=== PATIENT | female | born 1960 | race Caucasian/White ===

== ENCOUNTER 2018-05-21 11:36 | Outpatient (CLI) | payer OTHER ==
--- NOTE | 2018-05-21 15:43 | XRAY Report ---
Reason: PALPITATIONS Procedure Date: 05/21/2018 Accession Number: [id number] / [id number] Procedure: WCP - Chest 2 View X-Ray CPT Code: 54963 FULL RESULT: EXAM: CHEST RADIOGRAPHY EXAM DATE: 05/21/2018 11:53 AM. CLINICAL HISTORY: PALPITATIONS. COMPARISON: None. TECHNIQUE: 2 views. FINDINGS: Lungs/Pleura: No focal opacities evident. No pleural effusion. No pneumothorax. Normal volumes. Mediastinum: Heart and mediastinal contours are unremarkable. Other: None. IMPRESSION: Normal 2-view chest radiography. RADIA
== END 2018-05-21 11:37 | disposition home or self-care (01) ==
LOC: DI.WCP 11:36
PROVIDERS: ATTEND Family Medicine
DX: R00.2 Palpitations (principal)
CPT/HCPCS: 71046

== ENCOUNTER 2022-12-01 04:05 | Outpatient (CLI) | payer OTHER | END 2022-12-01 04:06 | disposition critical access hospital (66) | LOC: EMS 04:05 | DX: S69.91XA Unspecified injury of right wrist, hand and finger(s), initial encounter (principal); S00.81XA Abrasion of other part of head, initial encounter; W01.0XXA Fall on same level from slipping, tripping and stumbling without subsequent striking against object, initial encounter; Y92.481 Parking lot as the place of occurrence of the external cause | CPT/HCPCS: A0425; A0429 ==

== ENCOUNTER 2022-12-01 04:21 | Emergency (ER) | payer OTHER ==
[2022-12-01] MEDS ORDERED: TETANUS/DIPHTHERIA/PERTUSSIS 0.5 ML SYRINGE IM ONE (04:41)
[2022-12-01] MEDS ORDERED: MORPHINE 10 MG/ML VIAL IM STA (04:42)
[2022-12-01] MEDS ORDERED: HYDROmorphone 1 MG/ML CARPUJECT IM STA (04:43)
--- NOTE | 2022-12-01 04:43 | ED Physician Documentation ---
History of Present Illness - Stated complaint Stated Complaint: GLF - Chief complaint Chief Complaint: Trauma Ext - History obtained from History obtained from: Patient - Additonal information Additional information: 62yF, previously healthy with no known pmh presents s/p mechanical fall around 8pm last night with FOOSH to right hand and R forehead abrasion. also with R lower back pain s/p fall. denies other injury PD PAST MEDICAL HISTORY - Past Medical History Cardiovascular: None Respiratory: None Endocrine/Autoimmune: None GI: None COLLEGE PROFESSOR: None : None HEENT: None Psych: None Musculoskeletal: None Derm: None - Past Surgical History Past Surgical History: Yes /COLLEGE PROFESSOR: Hysterectomy - Present Medications Home Medications: Ambulatory Orders Medication Instructions Recorded Confirmed Lidocaine Patch 5% [Lidoderm Patch] 1 each TOP DAILY PRN #10 patch 02/08/16 Wheelchair 1 each MC DAILY #1 each 02/08/16 Oxycodone HCl/Acetaminophen 1 each PO Q4H PRN #10 tablet 12/01/22 [Percocet 5-325 mg Tablet] - Allergies Allergies/Adverse Reactions: Allergies Allergy/AdvReac Type Severity Reaction Status Date / Time codeine AdvReac Itching Verified 02/08/16 21:13 morphine AdvReac Hives Verified 02/08/16 21:13 - Social History Does the pt smoke?: Yes Smoking Status: Current every day smoker Does the pt drink ETOH?: No Does the pt have substance abuse?: No - Immunizations Immunizations are current?: No - POLST Patient has POLST: No PD ED PE NORMAL - Vitals Vital signs reviewed: Yes - General General: Alert and oriented X 3, No acute distress, Well developed/nourished - HEENT HEENT: Atraumatic, PERRL, EOMI, Moist mucous membranes, Pharynx benign, Other (R forehead abrasion/avulsed tissue. ) - Neck Neck: No bony TTP, C-Spine cleared by NEXUS criteria - Cardiac Cardiac: RRR - Respiratory Respiratory: No respiratory distress, Clear bilaterally - Abdomen Abdomen: Non tender, Non distended - Derm Derm: Normal color, Warm and dry - Extremities Extremities: Other (R distal forearm swelling/ttp. 2+ radial pulse. normal sensation and cap refill. tender with rom of wrist. nontender to elbow or arm/shoulder.) - Neuro Neuro: Alert and oriented X 3, collection coordinator 2-12 intact Eye Opening: Spontaneous Motor: Obeys Commands Verbal: Oriented GCS Score: 15 Results - Vitals Vitals: Vital Signs - 24 hr 12/01/22 12/01/22 12/01/22 04:28 05:31 06:04 Temperature 36.7 C Heart Rate 93 71 78 Respiratory 18 16 18 Rate Blood Pressure 137/86 H 144/75 H 144/102 H O2 Saturation 94 95 97 Oxygen O2 Source Room air Procedures - General procedure General procedure: Ring cutter was used to remove metal bracelet from swollen right wrist. Patient tolerated well. EBL 0. PD Medical Decision Making - ED course ED course: 62yF presents s/p mechanical fall from standing while walking a dog last night at 8pm. Suspect R distal forearm fracture. CT head ordered given head trauma. tdap updated. Patient's pain was managed with injection of 1mg IM dilaudid with improvement. (Note patient said she has allergy to codeine from long ago and stated she get itchy. She tolerated percoset in the past without issue. No known allergy to dilaudid.) XR RUE shows mildly displaced R distal radius fracture, possible comminution and intra-articular communication as well as ulnar styloid avulsion. d/w Dr. Whitten, orthopedist residential collections who recommends splint and f/u in clinic. sugar tongue splint placed and arm in sling. referral to ortho provided. CT head unremarkable per my interpretation and that of outside radiologist.Retur n precautions given. Departure - Departure Disposition: 01 Home, Self Care Clinical Impression: Fall from standing, Head injury, Distal radius fracture, right, Fracture of ulnar styloid Condition: Stable Instructions: ED Fx Wrist General Follow-Up: Geoff Banuelos MD [Provider Admit Priv/Credential] - Prescriptions: Oxycodone HCl/Acetaminophen [Percocet 5-325 mg Tablet] 1 each PO Q4H PRN #10 tablet PRN Reason: Pain >8 Comments: You were seen in the emergency department for Evaluation after a fall. You broke your distal radius and tip of the ulna (bones of the forearm at the end of the forearm near the wrist). Prescription for pain medicine was sent electronically to your pharmacy. Please follow-up with orthopedics this week and return to the emergency department if you have any new or worsening symptoms or other concerns. Forms: PCP List
[2022-12-01 05:37] VITALS: O2SAT 95
[2022-12-01 06:54] VITALS: BP 136/78
--- NOTE | 2022-12-01 08:52 | XRAY Report ---
PROCEDURE: Wrist 2 View RT INDICATIONS: fall on outstreched hand, obv deformity TECHNIQUE: 3 views of the wrist were acquired. COMPARISON: None. FINDINGS: Bones: Mildly displaced, angulated fracture of the distal radial metadiaphysis. Age-indeterminate fr acture of the ulnar styloid. Soft tissues: No suspicious soft tissue calcifications or masses. IMPRESSION: Mildly displaced, angulated fracture of the distal radial metadiaphysis. Age-indeterminate fracture of the ulnar styloid. Reviewed by: Richard Mobley on 12/01/2022 8:50 AM PDT Approved by: Richard Mobley on 12/01/2022 8:50 AM PDT Station ID: [id number]
--- NOTE | 2022-12-01 08:53 | CT Report ---
PROCEDURE: HEAD WO INDICATIONS: +HT no loc no AC TECHNIQUE: Noncontrast 4.5 mm thick angled axial sections acquired from the foramen magnum to the vertex. For r adiation dose reduction, the following was used: automated exposure control, adjustment of mA and/or kV according to patient size. COMPARISON: None. FINDINGS: Image quality: Excellent. CSF spaces: Basal cisterns are patent. No extra-axial fluid collections. Ventricles are normal in size and shape. Brain: No midline shift. No intracranial masses or hemorrhage. Mccormick-white matter interface is norm al. Skull and face: Calvarium and visualized facial bones are intact, without suspicious lesions. Sinuses: Visualized sinuses and mastoids are clear. IMPRESSION: No acute intracranial pathology. Findings are concordant with preliminary interpretation provided by [facility]. Reviewed by: Richard Mobley on 12/01/2022 8:52 AM PDT Approved by: Richard Mobley on 12/01/2022 8:52 AM PDT Station ID: [id number]
== END 2022-12-01 06:44 | disposition home or self-care (01) ==
LOC: EDUNIT# → ED 04:21
DX: S09.90XA Unspecified injury of head, initial encounter (principal); S52.613A Displaced fracture of unspecified ulna styloid process, initial encounter for closed fracture; S52.591A Other fractures of lower end of right radius, initial encounter for closed fracture; W19.XXXA Unspecified fall, initial encounter; F17.200 Nicotine dependence, unspecified, uncomplicated; Z23 Encounter for immunization
CPT/HCPCS: 70450; 73100; 90471; 90715; 99284; J1170

== ENCOUNTER 2022-12-08 08:00 | Outpatient (CLI) | payer OTHER ==
--- NOTE | 2022-12-08 13:50 | XRAY Report ---
PROCEDURE: Wrist 3 View RT INDICATIONS: RIGHT WRIST PAIN TECHNIQUE: 3 views of the wrist were acquired. COMPARISON: 12/01/2022 FINDINGS: Bones: Redemonstrated acute comminuted distal radius fracture with mild dorsal angulation of distal fragments. Possible increase in distraction of fracture fragments versus projectional artifact. Acute mildly displaced ulnar styloid fracture redemonstrated. Soft tissues: No suspicious soft tissue calcifications . IMPRESSION: Redemonstrated acute comminuted distal radius fracture. Possible increase in distraction of fracture fragments versus projectional artifact. Reviewed by: Paul John MD on 12/08/2022 1:49 PM PDT Approved by: Paul John MD on 12/08/2022 1:49 PM PDT Station ID: [id number]
== END 2022-12-08 23:59 | disposition home or self-care (01) ==
LOC: DI.WOS 08:00
PROVIDERS: ATTEND Orthopaedic Surgery
DX: S52.501D Unspecified fracture of the lower end of right radius, subsequent encounter for closed fracture with routine healing (principal)

== ENCOUNTER 2022-12-12 11:38 | Day surgery (SDC) | payer OTHER ==
[~2022-12-12 11:38] MED LIST: ACETAMINOPHEN 500 MG TABLET PO ONE; CELECOXIB 100 MG CAPSULE PO ONE; LACTATED RINGERS 1,000 ML IV ONE; ceFAZolin 2 GM VIAL ONE
[2022-12-12] MEDS ORDERED: PROPOFOL 500 MG/50 ML 500 MG/50 ML VIAL ONE (11:51)
[2022-12-12] MEDS ORDERED: LACTATED RINGERS 1,000 ML IV ONE (12:08)
--- NOTE | 2022-12-12 12:31 | ANESTHESIA ---
Pre-Anesthesia VS, & Labs - Diagnosis R distal radius fx - Procedure closed reduction, pinning, R distal radius Height: 5 ft 6 in Weight (kg): 70 kg Body Mass Index: 24.9 BMI Classification: Normal - NPO >8 hours - Is Patient ?: No - Lab Results Lab results reviewed: Yes Home Medications and Allergies Home Medications: Ambulatory Orders Acetaminophen [Tylenol] 650 mg PO Q6H PRN 12/09/22 Ibuprofen [Motrin] 600 mg PO Q6H PRN 12/09/22 Acetaminophen [Tylenol] 650 mg PO Q6H PRN 12/09/22 Ibuprofen [Motrin] 600 mg PO Q6H PRN 12/09/22 Allergies/Adverse Reactions: Allergies Allergy/AdvReac Type Severity Reaction Status Date / Time codeine AdvReac Hives Verified 12/09/22 10:02 Anes History & Medical History - Anesthetic History Anesthesia Complications: reports: No previous complications Family history of Anesthesia Complications: Denies Family history of Malignant Hyperthermia: Denies - Medical History Cardiovascular: reports: None Pulmonary: reports: None Gastrointestinal: reports: None Urinary: reports: None Musculoskeletal: reports: Osteoarthritis Endocrine/Autoimmune: reports: None Blood Disorders: reports: None Skin: reports: None Smoking Status: Current every day smoker - Surgical History Gynecologic: reports: Hysterectomy Exam General: Alert, Oriented x3, Cooperative Dental: WNL Mouth Openin Fingerbreadth Neck Mobility: Normal Mallampati classification: II Thyromental Distance: 4-6 cm Respiratory: Lungs clear, Normal breath sounds, No respiratory distress Cardiovascular: Regular rate Neurological: Normal speech Mental/Cognitive Status: Alert/Oriented X3, Normal for patient Cognitive Status: Within normal limits Plan Anesthesia Type: General, Supraclavicular Block Consent for Procedure(s) Verified and Reviewed: Yes Code Status: Attempt Resuscitation ASA classification: 2-Mild systemic disease Is this case an emergency?: No
[2022-12-12] MEDS ORDERED: fentaNYL 100 MCG/2 ML VIAL ONE ×2 (12:52→14:13)
[2022-12-12] MEDS ORDERED: MIDAZOLAM 2 MG/2 ML VIAL ONE (12:52)
[2022-12-12] MEDS ORDERED: ROPIVACAINE 0.2% PF 10 ML VIAL ONE (12:53)
[2022-12-12] MEDS ORDERED: ePHEDrine 50 MG/ML VIAL IVP PRN (13:21)
[2022-12-12] MEDS ORDERED: MORPHINE 2 MG/ML CARPUJECT IVP PRN (13:21)
[2022-12-12] MEDS ORDERED: NALOXONE 0.4 MG/ML VIAL IVP PRN (13:21)
[2022-12-12] MEDS ORDERED: ATROPINE ABBOJECT 1 MG/10 ML SYRINGE IVP PRN (13:21)
[2022-12-12] MEDS ORDERED: HYDROmorphone 0.5 MG/0.5 ML SYRINGE IVP PRN (13:21)
[2022-12-12] MEDS ORDERED: METOCLOPRAMIDE 10 MG/2 ML VIAL IVP PRN (13:21)
[2022-12-12] MEDS ORDERED: ONDANSETRON 4 MG/2 ML VIAL IVP PRN ×2 (13:21→13:53)
[2022-12-12] MEDS ORDERED: oxyCODONE 5 MG TABLET PO PRN (13:53)
[2022-12-12] MEDS ORDERED: CELECOXIB 100 MG CAPSULE PO PRN (13:53)
[2022-12-12] MEDS ORDERED: ACETAMINOPHEN 500 MG TABLET PO PRN (13:53)
--- NOTE | 2022-12-12 13:54 | OPERATIVE REPORT ---
Operative Report - General Procedure Date: 12/12/22 Planned Procedure: Closed reduction right distal radius with percutaneous pinning Pre-Op Diagnosis: Displaced intra-articular fracture right distal radius Procedure Performed: Closed reduction right distal radius with percutaneous pinning right wrist Post Op Diagnosis: Same as preoperative diagnosis - Procedure Note Primary Surgeon: Geoff Banuelos MD Secondary Surgeon: Beau Hanks MD, Kirstin CASTANO Anesthesia Provider: Rod Schmidt CRNA Anesthesia Technique: General LMA, Regional block Estimated Blood Loss (mL): 2 Indications: This is a 62-year-old woman with a ground-level fall onto outstretched right hand. She had isolated pain to right wrist with tenderness, swelling and limited motion right wrist. Her skin was intact. Her x-ray showed a displaced comminuted intra-articular fracture right distal radius. Informed consent obtained for closed reduction percutaneous pinning right distal radius Findings: Displaced, comminuted intra-articular fracture right distal radius Complications: None - Other Other Information/Narrative: The patient was brought to the operating room and was placed in a supine position with the right arm on a arm extension table. He received a regional block with supplemental sedation. The right upper extremity was prepped and draped in a sterile manner in the usual fashion. The C-arm image intensifier was utilized and covered with a sterile drape. A timeout procedure was performed by the entire operating room team and all were in agreement. Finger traps were applied to all 5 fingers and a traction bow as well. Longitudinal traction was applied, direct manipulation of the fracture site over a sterile bump. The C-arm image intensifier showed good alignment and a percutaneous pinning was performed with 0.062 K wires. The bare area of the radial styloid was engaged and pin was inserted from the styloid across the fracture to achieve bicortical fixation. An additional K wire from the radial styloid was also inserted to provide 2 bicortical K wires from the radial styloid. 1 additional K wire was inserted from the ulnar corner of the distal radius distally and these were then driven from distal to proximal and ulnar to radial. Biplanar and oblique imaging was obtained and there was good alignment of the fixation and fracture. The K wires were cut external to skin and covered with sterile balls. A well-padded short arm fiberglass splint was applied with gauze padding around the K wires. The patient tolerated the procedure well. No tourniquet was utilized.
[2022-12-12] MEDS ORDERED: LACTATED RINGERS 350 ML IV ONE ×2 (13:57)
[2022-12-12] MEDS ORDERED: LACTATED RINGERS 1,000 ML IV SCH (14:00)
--- NOTE | 2022-12-12 14:02 | ANESTHESIA POST OP EVALUATION ---
Anesthesia Post Eval - Post Anesthesia Eval Vitals: Last Vital Signs Temp 36.8 C 12/12/22 12:12 Pulse 79 12/12/22 12:12 Resp 16 12/12/22 12:12 BP 133/82 H 12/12/22 12:12 Pulse Ox 97 12/12/22 12:12 O2 Flow Rate CV Function Including HR & BP: Stable Pain Control: Satisfactory Nausea & Vomiting: Negative Mental Status: Baseline Respiratory Status: Airway Patent Hydration Status: Satisfactory Anesthesia Complications: None
[2022-12-12] MEDS: fentaNYL 100 MCG/2 ML VIAL IVP PRN ×2 (14:07→14:22)
[2022-12-12] MEDS ORDERED: oxyCODONE 5 MG TABLET ONE (15:00)
[2022-12-12 15:14] VITALS: O2SAT 96
[2022-12-12 15:42] VITALS: BP 136/73
--- NOTE | 2022-12-13 12:17 | XRAY Report ---
PROCEDURE: OR C-Arm Procedure INDICATIONS: RIGHT RADIUS PINNING FLUORO TIME: 0.2 MIN TECHNIQUE: Intraoperative fluoroscopic images COMPARISON: Chest x-ray 12/08/2022 FINDINGS: Intraoperative fluoroscopic images of distal radial fixation. IMPRESSION: Intraoperative fluoroscopic images of distal radial fixation. Reviewed by: Reg Cazares MD on 12/13/2022 12:11 PM PDT Approved by: Reg Cazares MD on 12/13/2022 12:11 PM PDT Station ID: [id number]
== END 2022-12-12 11:39 | disposition home or self-care (01) ==
LOC: SDS 11:38
PROVIDERS: ATTEND Orthopaedic Surgery
DX: S52.531A Colles' fracture of right radius, initial encounter for closed fracture (principal); W01.0XXA Fall on same level from slipping, tripping and stumbling without subsequent striking against object, initial encounter; Y93.K1 Activity, walking an animal; Y92.481 Parking lot as the place of occurrence of the external cause; F17.200 Nicotine dependence, unspecified, uncomplicated
CPT/HCPCS: 25606; A9270; J7120

== ENCOUNTER 2023-01-09 08:00 | Outpatient (CLI) | payer OTHER ==
--- NOTE | 2023-01-09 16:45 | XRAY Report ---
PROCEDURE: Wrist 3 View RT INDICATIONS: RIGHT WRIST FRACTURE TECHNIQUE: 3 views of the wrist were acquired. COMPARISON: None. FINDINGS: Bones: Excellent fixation of the distal radial fracture has been performed with improved alignment. No change in ulnar styloid fracture. No suspicious bony lesions. Soft tissues: No suspicious soft tissue calcifications or masses. IMPRESSION: Postsurgical sequelae. Reviewed by: Myesha Barajas MD on 01/09/2023 4:44 PM PDT Approved by: Myesha Barajas MD on 01/09/2023 4:44 PM PDT Station ID: [id number]
== END 2023-01-09 23:59 | disposition home or self-care (01) ==
LOC: DI.WOS 08:00
PROVIDERS: ATTEND Orthopaedic Surgery
DX: S52.531A Colles' fracture of right radius, initial encounter for closed fracture (principal)

== ENCOUNTER 2023-01-24 08:00 | Outpatient (CLI) | payer OTHER ==
--- NOTE | 2023-01-24 16:32 | XRAY Report ---
PROCEDURE: Wrist 3 View RT INDICATIONS: RIGHT WRIST FRACTURE TECHNIQUE: 3 views of the wrist were acquired. COMPARISON: 01/09/2023. FINDINGS: Bones: Interval removal of the external pins. Interval bone remodeling of the distal radial styloid fracture. Unchanged displaced ulnar styloid fracture. Soft tissues: No suspicious soft tissue calcifications or masses. IMPRESSION: Interval removal of the external pins, with interval healing of the distal radial styloid fracture. Unchanged displaced ulnar styloid fracture. Reviewed by: Richard Mobley on 01/24/2023 4:31 PM PDT Approved by: Richard Mobley on 01/24/2023 4:31 PM PDT Station ID: [id number]
== END 2023-01-24 23:59 | disposition home or self-care (01) ==
LOC: DI.WOS 08:00
PROVIDERS: ATTEND Orthopaedic Surgery
DX: S52.511D Displaced fracture of right radial styloid process, subsequent encounter for closed fracture with routine healing (principal); S52.611D Displaced fracture of right ulna styloid process, subsequent encounter for closed fracture with routine healing